=== PATIENT | female | born 1980 | race Caucasian/White ===

== ENCOUNTER 2018-08-10 13:46 | Inpatient (IN) | payer OTHER ==
[~2018-08-10] VITALS: Ht 165.1 cm; Wt 116.8 kg
[~2018-08-10 13:46] MED LIST: AVALIDE 300-121 EACH; GLUCOPHAGE500 MG; IBUPROFEN 800800 M1 PO; NORCO 5-325 TA1 EACH PO; PRENATAL
[2018-08-10] MEDS ORDERED: NOHOMEMEDICATIONS (14:23)
[2018-08-10 14:52] LABS: ABSOLUTE BASOPHILS 0.1 thou/uL (0.0-0.2); ABSOLUTE EOSINOPHILS 0.2 thou/uL (0.0-0.7); ABSOLUTE LYMPHOCYTES 1.7 thou/uL (0.8-5.3); ABSOLUTE MONOCYTES 0.4 thou/uL (0.0-1.2); ABSOLUTE NEUTROPHILS 9.1 thou/uL (1.6-8.1); BASOPHILS 0.8 %; EOSINOPHILS 1.6 %; HEMATOCRIT 43.4 % (37.0-47.0); HEMOGLOBIN 14.7 gm/dL (12.0-15.0); LYMPHOCYTES 14.7 %; MCH 29.6 pg (26.0-34.0); MCHC 33.9 g/dL (28.0-37.0); MCV 87.4 fL (80.0-100.0); MONOCYTES 3.7 %; MPV 8.3 fl. (7.2-11.1); NUCLEATED RBCS 0 /100WBC; PLATELET COUNT* 292 thou/uL (150-400); POLYS 79.2 %; RBC 4.96 mil/uL (4.20-5.00); RDW-CV 14.2 % (10.5-14.5); WBC 11.5 thou/uL (4.0-11.0)
[2018-08-10 15:03] LABS: ANION GAP 8 mmol/L (7-16); BUN 8 mg/dL (7-18); CALCIUM 8.8 mg/dL (8.5-10.1); CHLORIDE 104 mmol/L (98-107); CO2 28 mmol/L (21-32); CREATININE 0.9 mg/dL (0.6-1.3); GLUCOSE 128 mg/dL (70-99); SODIUM 140 mmol/L (136-145)
[2018-08-10 15:09] LABS: ALBUMIN 3.3 g/dL (3.4-5.0); ALKALINE PHOSPHATASE 67 U/L (46-116); SGOT 18 U/L (15-37); SGPT 24 U/L (30-65); TOTAL BILIRUBIN 0.8 mg/dL (<0.1-1.0); TOTAL PROTEIN 7.3 g/dL (6.4-8.2); TROPONIN-I LEVEL <0.06 ng/mL (<0.06)
[2018-08-10 16:24] LABS: URINE BILIRUBIN NEGATIVE (Negative); URINE BLOOD 3+ (Negative); URINE CLARITY CLOUDY; URINE COLOR YELLOW; URINE GLUCOSE-RANDOM NEGATIVE (Negative); URINE KETONES NEGATIVE (Negative); URINE PROTEIN 2+ (Negative); URINE UROBILINOGEN 0.2 E.U./dl (0.2-1.0)
[2018-08-10 16:25] LABS: URINE LEUKOCYTES-REFLEX 2+ (Negative); URINE NITRITE-REFLEX POSITIVE (Negative)
[2018-08-10 16:38] LABS: URINE RBC >20 Many /HPF (0-2)
[2018-08-10 16:39] LABS: MUCUS 0-3 Light strn/LPF (None Seen); SQUAMOUS >10 Many /LPF (0-3)
[2018-08-10 16:40] LABS: CASTS None Seen /LPF (None Seen); CRYSTALS None Seen /LPF (None Seen); WBC CLUMPS Few (None Seen)
[2018-08-10 17:13] LABS: AMP/METHAMP Negative (Negative); BARBITURATES Negative (Negative); BENZODIAZEPINES Negative (Negative); COCAINE Negative (Negative); METHADONE Negative (Negative); OPIATES Negative (Negative); PCP Negative (Negative); THC POSITIVE (Negative)
[2018-08-10 17:37] VITALS: BP 194/129
--- NOTE | 2018-08-10 18:15 | NUR ---
PATIENT ARRIVED TO 231 PER CART FROM ER. PATIENT IS ALERT AND ORIENTED X 4. SHE IS VERY SOA ON ARRIVAL. PATIENT IS UP TO THE BSC WITH STANDBY ASSIST. O2 SATS DECLINED TO THE MID 80'S WITH MOVEMENT. O2 TITRATED UP TO 5 LITERS TO OBTAIN A SAT >90. PATIENT ORIENTED TO THE ROOM, CALL LIGHT, AND TELE MONITOR TELE SHOWS ST WITH BBB. FSBS CHECKED AND WAS 207. WILL CONTINUE TO MONITOR.
[2018-08-10 20:00] VITALS: BP 215/143
[2018-08-10 22:20] VITALS: BP 213/119
[2018-08-11] VITALS: BP 174/126
[2018-08-11 02:34] LABS: HEMATOCRIT 44.4 % (37.0-47.0); MCH 29.7 pg (26.0-34.0); MCHC 33.8 g/dL (28.0-37.0); MPV 8.1 fl. (7.2-11.1); NUCLEATED RBCS 0 /100WBC; PLATELET COUNT* 309 thou/uL (150-400); RBC 5.05 mil/uL (4.20-5.00); RDW-CV 14.1 % (10.5-14.5)
[2018-08-11 02:48] LABS: CALCIUM 8.9 mg/dL (8.5-10.1); CREATININE 0.8 mg/dL (0.6-1.3); POTASSIUM 4.3 mmol/L (3.5-5.1)
[2018-08-11 03:50] LABS: ABSOLUTE LYMPHOCYTES 0.7 thou/uL (0.8-5.3); ABSOLUTE NEUTROPHILS 11.3 thou/uL (1.6-8.1); PLATELET ESTIMATE ADEQUATE
[2018-08-11 04:00] VITALS: BP 169/115
--- NOTE | 2018-08-11 04:31 | NUR ---
ASSUMED PT CARE @ 1930. PT DENIED ANY SOA W O2 ON. BBP 215/142. PRN HYDRALAZINE GIVEN. REPEAT BP 213/119. DR ZABALA NOTIFIED. ONE TIME HCTZ GIVEN. REPEAT BP 174/126. ORDER FOR PRN HYDRALAZINE INCREASED TO Q 4HR GIVEN. BP 169/115. TYLENOL GIVEN FOR OJEDA. EFFECTIVE. PT HAS BEEN ABLE TO REST THE PAST FEW HRS WITH NO APPARENT DISCOMFORT REPORTED OR OBSERVED. SON STAYING AT BEDSIDE. CALL LIGHT IN REACH. WILL CONTINUE HOURLY ROUNDING FOR SAFETY.
[2018-08-11 08:00] VITALS: BP 183/135
--- NOTE | 2018-08-11 11:30 | NUR ---
MET WITH PT TO DISCUSS HOME SITUATION/DC PLANNING. PT LIVES WITH HER ADULT SON. PT IS INDEPENDENT AND ACTIVE. USES NO EQUIPMENT. SHE IS UNINSURED, RECENTLY LOST HER JOB AND INSURANCE. STATES SHE DIDN'T HAVE OPTION FOR COBRA, PT IS CURRENTLY SEEKING EMPLOYMENT. PT PLANS TO RETURN HOME AT [place]. GAVE HER COMMUNITY RESOURCES, DISCUSSED F/U AT [facility] AND [facility] FOR SCRIPTS. PT THINKS SHE CAN AFFORD MEDS IF THEY ARE ON THE $4 LIST. WILL FOLLOW
[2018-08-11 11:45] VITALS: BP 191/115
[2018-08-11 15:21] VITALS: BP 190/107
--- NOTE | 2018-08-11 17:45 | 2DMMODE ---
[place] [address] 2 D/M-MODE ECHOCARDIOGRAM Name: DE IBRAHIM Room: [address] IN [facility]#: [id number] Admission: 08/10/18 Attend Phys: Stefano Mcclellan, Discharge: Date of : 76 Date of Service: 08/11/18 1745 Report #: [id number] THIS REPORT FOR: //name// APPROVED REPORT Study performed: 08/11/2018 10:48:32 EXAM: Comprehensive 2D, Doppler, and color-flow Echocardiogram Patient Location: In-Patient Room #: [facility] Status: routine BSA: 2.26 HR: 114 bpm BP: 183/135 mmHg Rhythm: NSR Other Information Study Quality: Good Indications Dyspnea Hypertension/HDD 2D Dimensions IVSd: 15.53 (7-11mm) LVOT Diam: 21.44 (18-24mm) LVDd: 48.51 mm PWd: 12.49 (7-11mm) Ascending Ao: 44.14 (22-36mm) LVDs: 30.05 (25-40mm) Aortic Root: 31.09 mm Volumes Left Atrial Volume (Systole) LA ESV Index: 41.10 mL/m2 Aortic Valve AoV Peak Seth.: 1.71 m/s AO Peak Gr.: 11.71 mmHg LVOT Max P.84 mmHg AO Mean Gr.: 6.41 mmHg LVOT Mean P.38 mmHg LVOT Max V: 1.31 m/s AO V2 VTI: 25.04 cm LVOT Mean V: 0.84 m/s MARIELLA (VTI): 2.84 cm2 LVOT V1 VTI: 19.67 cm TDI Lateral E' Seth.: 0.22 m/[place] [address] 2 D/M-MODE ECHOCARDIOGRAM Name: DE IBRAHIM Room: [address] IN [facility].#: [id number] Admission: 08/10/18 Attend Phys: Stefano Mcclellan, Discharge: Date of : 76 Date of Service: 08/11/18 1745 Report #: [id number] Pulmonary Valve PV Peak Seth.: 1.04 m/s PV Peak Gr.: 4.29 mmHg Left Ventricle The left ventricle is normal size. Left ventricular dyssynergy noted consistent with bundle branch block. Moderate concentric left ventricular hypertrophy. Left ventricular systolic function is normal. LVEF is 55-60%. Severe diastolic dysfunction is present (restrictive filling). Right Ventricle The right ventricle is normal size. The right ventricular systolic function is normal. Atria Left atrium is mild to moderately dilated. Right atrium is moderately dilated. Aortic Valve The aortic valve is normal in structure. No aortic regurgitation is present. There is no aortic valvular stenosis. Mitral Valve The mitral valve is normal in structure. Mild mitral regurgitation. No evidence of mitral valve stenosis. Tricuspid Valve The tricuspid valve is normal in structure. Trace tricuspid regurgitation. No pulmonary hypertension. Pulmonic Valve The pulmonary valve is normal in structure. There is no pulmonic valvular regurgitation. Great Vessels The aortic root is normal in size. IVC is normal in size and collapses >50% with inspiration. Pericardium There is no pericardial effusion. <Conclusion> The left ventricle is normal size. Moderate concentric left ventricular hypertrophy. Left ventricular systolic function is normal. LVEF is 55-60%. [place] [address] 2 D/M-MODE ECHOCARDIOGRAM Name: DE IBRAHIM Room: [address] ..#: [id number] Admission: 08/10/18 Attend Phys: Stefano Mcclellan, Discharge: Date of : 76 Date of Service: 08/11/18 1745 Report #: [id number] Left ventricular dyssynergy noted consistent with bundle branch block. Left atrium is mild to moderately dilated. Right atrium is moderately dilated. Mild mitral regurgitation. Trace tricuspid regurgitation. No pulmonary hypertension. IVC is normal in size and collapses >50% with inspiration. <ELECTRONICALLY SIGNED> By: Hesham Driver MD, FACC 08/11/18 1745 1745 1745 Hesham Driver MD, [facility] /INF
--- NOTE | 2018-08-11 18:04 | EKG ---
[place] [address] ELECTROCARDIOGRAM REPORT Name: DE IBRAHIM Room: [address] ADM IN .R.#: [id number] Admission: 08/10/18 Attend Phys: Stefano Mcclellan MD Discharge: Date of : 76 Report #: [id number] THIS REPORT FOR: //name// [facility] ED Test Date: 2018-08-10 Test Time: 14:24:01 Pat Name: DE IBRAHIM Department: Room: [facility] Gender: F Physician Gynecologist: RAVEN : 1980 Requested By: De Geeback Order Number: [id number] MD: Hesham Driver Measurements Intervals [place] Rate: 101 P: 8 NH: 152 QRS: 0 QRSD: 168 T: 162 QT: 436 QTc: 566 Interpretive Statements Sinus tachycardia Left bundle branch block No previous ECG available for comparison Electronically Signed On 08-11-2018 18:04:05 [employer] by Hesham Driver [email or web address] <ELECTRONICALLY SIGNED> By: Hesham Driver MD, [facility] 08/11/18 1804 1424 1424 Hesham Driver MD, FACC /EPI
[2018-08-11 20:00] VITALS: BP 118/61; BP 185/111
--- NOTE | 2018-08-11 20:12 | NUR ---
VSS, ASSUMED CARE IN THE AM, ASSESSMENT PERFORMED AND CHARTED, FALL PRECAUTIONS IN PLACE AND CALL LIGHT IN REACH, PT IS A&O4, UP AD KRUNAL, TRACING ST ON THE MONITOR, HER GOAL IS TO LOWER BP. AND AND IMPROVED BREATHING PT IS ON 4L NC THIS AM AND IS NOW ON RA, PT Goal has been met with IMPROVED BREATHING AND LOWER BPS. HOURLY ROUNDS COMPLETED, WILL FOLLOW WITH PLAN OF CARE.
[2018-08-12] VITALS: BP 160/108
--- NOTE | 2018-08-12 03:39 | NUR ---
ASSUMED PT CARE @ 1930. PT DENIED SOA, REPORTED OJEDA TODAY BUT WAS GONE BY BEGINNING OF SHIFT. PT WAS FLUSHED BUT AFEBRILE. BEDSIDE FAN IN PLACE, CLONIDINE AND HYDRALAZINE GIVEN FOR HTN. PT HAS RESTED TRHOUGHOUT REST OF SHIFT WITHOUT INCIDENT. CALL LIGHT IN REACH. HOURLY ROUNDING FOR SAFETY.
[2018-08-12 04:00] VITALS: BP 155/98
[2018-08-12 05:22] LABS: ABSOLUTE BASOPHILS 0.1 thou/uL (0.0-0.2); ABSOLUTE EOSINOPHILS 0.1 thou/uL (0.0-0.7); ABSOLUTE LYMPHOCYTES 2.7 thou/uL (0.8-5.3); ABSOLUTE MONOCYTES 0.8 thou/uL (0.0-1.2); ABSOLUTE NEUTROPHILS 8.5 thou/uL (1.6-8.1); BASOPHILS 0.7 %; HEMATOCRIT 39.3 % (37.0-47.0); HEMOGLOBIN 13.1 gm/dL (12.0-15.0); LYMPHOCYTES 21.9 %; MCH 29.8 pg (26.0-34.0); MCHC 33.3 g/dL (28.0-37.0); MCV 89.5 fL (80.0-100.0); MONOCYTES 6.3 %; NUCLEATED RBCS 0 /100WBC; PLATELET COUNT* 279 thou/uL (150-400); POLYS 70.1 %; RDW-CV 14.5 % (10.5-14.5); WBC 12.1 thou/uL (4.0-11.0)
[2018-08-12 05:33] LABS: CALCIUM 8.4 mg/dL (8.5-10.1); CREATININE 0.8 mg/dL (0.6-1.3); POTASSIUM 3.8 mmol/L (3.5-5.1); TOTAL BILIRUBIN 0.5 mg/dL (<0.1-1.0); TOTAL PROTEIN 6.4 g/dL (6.4-8.2)
[2018-08-12 08:20] VITALS: BP 151/84
[2018-08-12] MEDS ORDERED: AUGMENTIN 875-1 EACH PO (10:57)
[2018-08-12] MEDS ORDERED: CLONIDINE0.1 PO (10:59)
[2018-08-12] MEDS ORDERED: COZAAR 25 MG TA25 M2 PO (11:01)
--- NOTE | 2018-08-12 11:30 | NUR ---
MET WITH PT, DISCUSSED SCRIPTS AND COST, SHE STATES SHE WILL BE ABLE TO AFFORD HER MEDS. NO OTHER NEEDS ID'D, HAS RESOURCES
[2018-08-12 12:00] VITALS: BP 168/111
--- NOTE | 2018-08-12 12:44 | NUR ---
PT VSS THIS SHIFT. PT VERBALIZED UNDERSTANDING OF DC INSTRUCTIONS. PT EDUCATED TO FOLLOW UP WITH PCP AND CARDIOLOGY CLINIC, APPOINTMENT MADE. PT TOLERATING DIET AND BEING UP AD KRUNAL WITH STEADY GAIT. CM FOLLOWING PT AND HAS HELPED WITH PT MEDICATIONS AND COST. PT VERBALIZED CONCERNS REGARDING FOLLOW UP CARDIAC APPOINTMENT DUE TO COST AND NO INSURANCE, WILL PAGE CARDIOLOGY TO FIND OUT SINCE BATOOL WITH CM DID NOT KNOW. PT VERBALIZED UNDERSTANDING TO DC MEDICATIONS AND IV HAS BEEN REMOVED INTACT. WILL CONTINUE TO MONITOR AND ASSESS
== END 2018-08-12 13:05 | disposition home or self-care (01) | DRG 193 ==
LOC: M.ERS 13:46 → M.TBA-ER 16:06 → M.2W 16:06
PROVIDERS: Nurse Practitioner Family; ADMIT Internal Medicine
DX: J18.9 Pneumonia, unspecified organism (principal); J96.00 Acute respiratory failure, unspecified whether with hypoxia or hypercapnia; N39.0 Urinary tract infection, site not specified; R65.10 Systemic inflammatory response syndrome (SIRS) of non-infectious origin without acute organ dysfunction; E11.9 Type 2 diabetes mellitus without complications; I16.0 Hypertensive urgency; J20.9 Acute bronchitis, unspecified; E87.6 Hypokalemia; I10 Essential (primary) hypertension; Z90.49 Acquired absence of other specified parts of digestive tract; Z88.6 Allergy status to analgesic agent; Z91.19 Patient's noncompliance with other medical treatment and regimen; Z79.899 Other long term (current) drug therapy